=== PATIENT | female | born 1965 | race Two or more races ===

== ENCOUNTER 2019-09-26 05:29 | Day surgery (SDC) | payer BC ==
[2019-09-23 08:59] VITALS: BMI 26.9
[2019-09-26 12:14] VITALS: TEMP 96.8
[2019-09-26 12:44] VITALS: BP 133/71; PULSE 54
--- NOTE | 2019-09-30 16:03 | PATH ---
Surgical Pathology Report Patient Name: ASHLI GARCIA [facility]. Rec. #: [id number] /Age/Gender: 1965 (Age: 54) / F Account: [id number] Location: U-ENDOSCOPY Taken: 09/26/2019 Received: 09/26/2019 Reported: 09/29/2019 Physicians: Ad Valverde M.D. Specimen(s) Received STOMACH Clinical History Epigastric pain Postoperative diagnosis: Gastritis Final Diagnosis STOMACH, BIOPSY: GASTRIC OXYNTIC MUCOSA WITH MILD CHRONIC GASTRITIS. IMMUNOHISTOCHEMICAL STAIN FOR H. PYLORI IS NEGATIVE. Positive and negative controls (internal if applicable) show appropriate results. Electronically Signed Erika Tobar M.D. Gross Description Received in formalin, labeled "stomach biopsy" are 3 loredo, irregular portions of soft tissue ranging from 0.1-0.3 cm. in greatest dimension. The specimens are submitted in toto in one cassette. /09/26/2019 saudi09/26/2019
== END 2019-09-26 13:23 | disposition home or self-care (01) ==
LOC: JASU-ENDO 05:29
PROVIDERS: ATTEND Internal Medicine Gastroenterology
PROC: 0DB68ZX Excision of Stomach, Via Natural or Artificial Opening Endoscopic, Diagnostic (ICD-10-PCS; principal; 2019-09-26 12:00)
DX: K29.50 Unspecified chronic gastritis without bleeding (principal)
CPT/HCPCS: 88305-TC; 88342-TC